=== PATIENT | male | born 1980 | race Caucasian/White ===

== ENCOUNTER 2020-06-21 09:24 | Emergency (ER) | payer OTHER ==
[~2020-06-21] VITALS: Ht 180.3 cm; Wt 116.8 kg
[2020-06-21] MEDS ORDERED: LORazepam 1MG TABLET PO ONE (10:00)
--- NOTE | 2020-06-21 10:15 | NUR ---
pt declines wanting ativan at this time.
--- NOTE | 2020-06-21 10:35 | NUR ---
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
[2020-06-21 10:51] VITALS: BP 158/78
== END 2020-06-21 10:53 | disposition home or self-care (01) ==
LOC: ED 10:42
DX: F10.10 Alcohol abuse, uncomplicated (principal); F43.0 Acute stress reaction; F41.9 Anxiety disorder, unspecified; Y90.0 Blood alcohol level of less than 20 mg/100 ml
CPT/HCPCS: 99283